=== PATIENT | male | born 1975 | race Caucasian/White ===

== ENCOUNTER 2016-06-11 20:26 | Inpatient (IN) | payer BC ==
[~2016-06-11] VITALS: Ht 185.4 cm; Wt 122.0 kg
[2016-06-11 20:36] VITALS: BP 144/93
--- NOTE | 2016-06-11 20:41 | NUR ---
BIBA TO ER BED 5
--- NOTE | 2016-06-11 20:42 | NUR ---
BIBA C/O HEADACHE AND REDNESS , PAIN AND SWELLING ON HIS LEFT EYE , S/P SPIDER BITE 4 DAYS AGO.SEEN IN AN URGENT WITH PRESCRIPTION OF ANTIBIOTIC AND IBUPROFEN
[2016-06-11] MEDS ORDERED: ACETAMINOPHEN EXTRA STRENGTH 500 MG TAB ONE (20:48)
[2016-06-11] MEDS ORDERED: fentaNYL 0.05 MG/ML VIAL IM ONE (21:15)
--- NOTE | 2016-06-11 21:27 | NUR ---
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
[2016-06-11] MEDS ORDERED: VANCOMYCIN 1,000 MG in DEXTROSE 5% 250 ML IV ONE (22:20)
[2016-06-11] MEDS ORDERED: NACL 0.9% 1,000 ML IV ONE (22:20)
[2016-06-11] MEDS ORDERED: VANCOMYCIN 1,000 MG VIAL ONE (22:30)
[2016-06-11] MEDS ORDERED: ATROPINE 0.4 MG/ML VIAL IVP ONE (22:40)
[2016-06-11] MEDS ORDERED: MIDAZOLAM 2 MG/2 ML VIAL IVP ONE (22:40)
[2016-06-11] MEDS ORDERED: KETAMINE 500 MG/5 ML VIAL IVP ONE (22:40)
[2016-06-11 22:49] LABS: HEMATOCRIT 46.1 % (36-52); HEMOGLOBIN 15.4 g/dL (12.0-18.0); MEAN CORPUSCULAR HEMOGLOBIN 32 pg (27-31); MEAN CORPUSCULAR HGB CONC 33 g/dL (33-37); MEAN CORPUSCULAR VOLUME 95 fL (80-94); PLATELET COUNT (AUTO) 238 K/uL (140-450); RED BLOOD CELL COUNT(AUTO) 4.86 MIL/uL (4.20-6.10); RED CELL DISTRIBUTION WIDTH 13.1 % (11.6-13.7)
[2016-06-11 23:08] LABS: BAND % (MANUAL) 15 % (0-8); EOSINOPHILS % (MANUAL) 4 % (0-4); LYMPHOCYTES % (MANUAL) 18 % (20-46); MONOCYTES % (MANUAL) 3 % (5-12); NEUTROPHILS % (MANUAL) 60 (43-65); WHITE BLOOD COUNT (AUTO) 16.1 K/uL (4.8-10.8)
[2016-06-11] MEDS ORDERED: ATROPINE 1 MG/10 ML SYR IVP ONE (23:09)
[2016-06-11 23:26] LABS: ANION GAP 13.6 (8-16); CALCIUM 8.7 mg/dL (8.5-10.1); CARBON DIOXIDE 26.3 mmol/L (21-32); POTASSIUM 3.9 mmol/L (3.5-5.1)
--- NOTE | 2016-06-11 23:26 | NUR ---
KETAMINE ADMINISTERED AT BEDSIDE WITH DR LINDSAY ;VS WNL; BREATHING UNLABORED
[2016-06-11 23:27] LABS: TOTAL BILIRUBIN 0.4 mg/dL (0.0-1.0); TOTAL PROTEIN, SERUM 7.2 g/dL (6.4-8.2)
[2016-06-11 23:28] LABS: ALBUMIN 3.3 g/dL (3.4-5.0)
--- NOTE | 2016-06-11 23:28 | NUR ---
VERSED ADMINISTERED AT BEDSIDE WITH DR LINDSAY ;VS WNL; BREATHING UNLABORED
[2016-06-11 23:31] LABS: PARTIAL THROMBOPLASTIN TIME 26.5 secs (22-35.6); PROTHROMBIN TIME 9.2 secs (10.8-13.4)
--- NOTE | 2016-06-11 23:35 | NUR ---
PT AWAKE, CALM ;VS WNL; BREATHING UNLABORED
[2016-06-11] MEDS ORDERED: ONDANSETRON 4 MG/2 ML VIAL IVP PRN (23:50)
[2016-06-11] MEDS ORDERED: LORazepam 2 MG/ML VIAL IVP PRN (23:50)
[2016-06-11] MEDS ORDERED: ACETAMINOPHEN 325 MG TAB PO PRN (23:50)
[2016-06-11] MEDS ORDERED: VANCOMYCIN PER PHARMACY MC PRN (23:50)
--- NOTE | 2016-06-12 00:26 | NUR ---
Pt report given to ISIDRO GRIFFITH . Transfer of care at this time.
--- NOTE | 2016-06-12 00:26 | NUR ---
Patient will be admitted to care of DR JIMENEZ . Admited to MS 106B. Will go to room 106B. Belongings list completed. Report to ISIDRO GRIFFITH .
[2016-06-12 00:45] VITALS: BP 139/97
--- NOTE | 2016-06-12 00:45 | NUR ---
ADMITTED 41 YEAR OLD MALE FROM ER. PT ARRIVED TO UNIT VIA WHEEL CHAIR. INITIAL ASSESSMENT COMPLETED. PT AA0X4. PT STABLE. VS STABLE. PT HAS A DRESSING ON LEFT EYE S/P I & D DONE IN ER. PT HAS IV ON RIGHT HAND G 22; ASYMPTOMATIC, PATENT AND INTACT SL. ORIENTED PT TO ROOM AND SURROUNDINGS AND USE OF CALL LIGHT. EXPLAINED PLAN OF CARE TO PT AND HE VERBALIZES UNDERSTANDING. CALL LIGHT WITHIN REACH. Addendum: 06/12/16 at 0330 by Shannan Rodriguez RN PT HAS A SMALL SCAB ON HIS LOWER BACK.
--- NOTE | 2016-06-12 01:00 | NUR ---
PT REFUSED TO WEAR SCDS. EXPLAINED TO PT THE IMPORTANCE OF WEARING THEM BUT HE STILL REFUSES. WILL CONTINUE TO MONITOR PT.
--- NOTE | 2016-06-12 01:37 | NUR ---
PT COMPLAINING OF EYE PAIN 06/18. VS STABLE, WILL MEDICATE ORDERED.
[2016-06-12] MEDS: HYDROcodone/APAP 5/325 MG 1 TAB TAB PO PRN ×2 (01:39→06:47)
--- NOTE | 2016-06-12 02:53 | NUR ---
PT SLEEPING AT THIS TIME. NO SIGNS OF DISTRESS/DISCOMFORT NOTED. WILL CONTINUE TO MONITOR PT.
--- NOTE | 2016-06-12 04:59 | NUR ---
PT SLEEPING AT THIS TIME. NO SIGNS OF DISTRESS NOTED. CALL LIGHT WITHIN REACH.
--- NOTE | 2016-06-12 06:45 | NUR ---
PT COMPLAINING OF LEFT EYE PAIN 5/10. VS STABLE, WILL MEDICATE ORDERED.
[2016-06-12 06:52] LABS: BASOPHILS # (AUTO) 0.1 K/uL (0.00-0.22); BASOPHILS % (AUTO) 0.9 % (0.0-2.0); EOSINOPHILS # (AUTO) 0.4 K/uL (0-0.4); EOSINOPHILS % (AUTO) 2.8 % (0.0-4.0); HEMATOCRIT 46.7 % (36-52); HEMOGLOBIN 15.8 g/dL (12.0-18.0); LYMPHOCYTES # (AUTO) 2.4 K/uL (2.0-11.5); LYMPHOCYTES % (AUTO) 16.1 % (20.5-51.1); MEAN CORPUSCULAR HEMOGLOBIN 32 pg (27-31); MEAN CORPUSCULAR HGB CONC 34 g/dL (33-37); MEAN CORPUSCULAR VOLUME 96 fL (80-94); MONOCYTES # (AUTO) 1.2 K/uL (0.8-1.0); MONOCYTES % (AUTO) 7.9 % (1.7-9.3); NEUTROPHILS # (AUTO) 10.9 K/uL (1.8-7.7); NEUTROPHILS % (AUTO) 72.3 % (42.2-75.2); PLATELET COUNT (AUTO) 245 K/uL (140-450); RED BLOOD CELL COUNT(AUTO) 4.88 MIL/uL (4.20-6.10); RED CELL DISTRIBUTION WIDTH 13.1 % (11.6-13.7)
[2016-06-12 07:06] LABS: CALCIUM 8.5 mg/dL (8.5-10.1); CARBON DIOXIDE 26.9 mmol/L (21-32); CREATININE 0.9 mg/dL (0.6-1.3); POTASSIUM 3.9 mmol/L (3.5-5.1)
--- NOTE | 2016-06-12 07:24 | NUR ---
ENDORSED PLAN OF CARE TO DAY SHIFT NURSE. PT IN STABLE CONDITION.
[2016-06-12 08:00] VITALS: BP 130/89
--- NOTE | 2016-06-12 08:00 | NUR ---
RECEIVED REPORT FROM ISIDRO GRIFFITH FOR CONTINUITY OF CARE. PATIENT AWAKE A/OX4 NO S/S OF RESP DISTRESS NOTED .PATIENT JUST RECEIVED PAIN MEDS WILL REASSESS PAIN MEDS. LEFT UPPER AND LOWER LIDS SWOLLEN S/P I&D COVERED WITH DRESSING NO DRAINAGE NOTED. IV SITE RT HAND GAUGE 20 INTACT AND PATENT. PLAN OF CARE DISCUSSED WITH THE PATIENT VITALS STABLE WILL CONTINUE TO MONITOR.
[2016-06-12] MEDS ORDERED: VANCOMYCIN 1,250 MG in DEXTROSE 5% 250 ML IV SCH (09:00)
--- NOTE | 2016-06-12 09:00 | NUR ---
DUE MED VANCOMYCIN IVPB GIVEN. LEFT EYE SWOLLEN , HAD DRAINAGE REINFORCE DRESSING NOTIFIED DR BARBARA RODRIGUEZ NEW ORDER SURGICAL CONSULT WITH DR REYES .
--- NOTE | 2016-06-12 09:10 | NUR ---
SPOKE WITH DR REYES ,HE SUGGESTED SLIP OPERATOR, PATIENT'S CASE IS NOT HIS PRACTICE. SPOKE WITH DR CHAND STATED NOT TAKING CONSULT AT THIS TIME. NOTIFIED DR JIMENEZ NEW ORDER CONSULT DR SALVADOR ESPINOZA.
[2016-06-12] MEDS ORDERED: MORPHINE SULFATE 2 MG/ML SYR IVP PRN (10:00)
--- NOTE | 2016-06-12 10:11 | NUR ---
PATIENT HAS BEEN SCREENED AND CATEGORIZED HIGH NUTRITION RISK. PATIENT WILL BE SEEN WITHIN 1-2 DAYS OF ADMISSION. 06/12/16-06/13/[address]
--- NOTE | 2016-06-12 10:30 | NUR ---
NOTIFIED DR FRANCO THE CONSULT WILL SEE PATIENT SOON HE IS DONE THE SURGERY.
--- NOTE | 2016-06-12 13:16 | NUR ---
DR BARBARA Taylor VISITED PATIENT NEW ORDER TRANSFER TO HIGHER LEVEL OF CARE.
--- NOTE | 2016-06-12 14:03 | NUR ---
FAXED INITIAL REVIEW TO [facility] [phone] PHONE ZEINA [phone] CALLED ZEINA ABOUT TRANSFER TO HIGHER LEVEL OF CARE. SHE SAID FOR ME TO GET A FACILITY THAT WILL TAKE HER. CALLED [facility] AND SPOKE WITH LUBNA. AT PRESENT NO BEDS, BUT SHE SAID TO FAX FACE SHEET.
--- NOTE | 2016-06-12 14:37 | NUR ---
06/12/16 RD INITIAL ASSESSMENT COMPLETED PLEASE REFER TO NUTRITION ASSESSMENT UNDER CARE ACTIVITY FOR ESTIMATED NUTRITIONAL NEEDS. 1. CONTINUE REGULAR DIET 2. RD TO FOLLOW-UP 3-5 DAYS; MODERATE RISK LANI BA RD
--- NOTE | 2016-06-12 15:15 | NUR ---
CALLED [facility] AND SPOKE WITH JONG FAXED FACE SHEET TO THE. WAS TOLD TO CALL ER AND TO FIND OUT THE NAME OF THE HOSPITALIST. I CALLED ER AND WAS TOLD THE HOSPITALIST WAS DR. GUTIERREZ PAGER [phone].. I LEFT A MESSAGE FOR HIM TO CALL ME TO SEE IF HE WILL ACCEPT THIS PATIENT. NO CALL BACK I CALLED DR.A JIMENEZ AND INFORMED HIME THAT THIS PHYSICIAN MAY CALL HIM. I ALSO CALLED [facility] AND SPOKE WITH LUBNA. SHE SAID THEY CAN ACCEPT THE PATIENT, THEY JUST NEED THE ACCEPTING PHYSICIAN TO CALL [facility] CONTROL. THE PATIENT CAN GO TO ROOM 580B. I INFORMED DR Pino JIMENEZ AND HE SAID HE WOULD GET HIS FATHER TO CALL [facility]. LEFT A MESSAGE WITH ZEINA FROM [facility].
--- NOTE | 2016-06-12 16:00 | NUR ---
D/C PATIENT TO [facility] VIA AMBULANCE , VITALS STABLE D/C INSTRUCTION GIVEN TO THE PATIENT. VERBALIZED UNDERSTANDING.
--- NOTE | 2016-06-12 16:01 | NUR ---
SPOKE WITH LUBNA AT [facility]. THEY PATIENT HAS BEEN ACCEPTED UNDER DR. Alida JIMENEZ. I CALLED [facility] AND INFORMED ZEINA. SHE ASKED IF SOMEONE CALLED [facility] TO OPEN A CASE. SHE ALSO SAID FOR TRANSPORT, NO AUTH NEEDED. I CALLED LUBNA A [facility] AND TOLD HER ABOUT SOMEONE CALLING [facility] AT [facility] AND GAVE HER THE PHONE NUMBER FOR INTAKE, . I CALLED [facility] AND PICKUP WILL BE IN ABOUT 30 MINUTES. THE PATIENT TO GO TO ROOM 580B. PHONE FOR REPORT IS [phone]. LLOYD GRIFFITHSEASONAL RETAIL MERCHANDISER NURSE INFORMED . I CALLED [facility] AND SPOKE WITH JONG AND INFORMED HER THAT THE PATIENT WAS GOING TO ANOTHER FACILITY.
[2016-06-12 16:37] VITALS: BP 125/69
== END 2016-06-12 16:00 | disposition short-term general hospital (02) | DRG 854 ==
LOC: MED 20:26 → MTU 23:56
PROVIDERS: ADMIT Preventive Medicine Preventive Medicine/Occupational Environmental Medicine; ATTEND Preventive Medicine Preventive Medicine/Occupational Environmental Medicine
PROC: 0N9 Head and Facial Bones, Drainage (ICD-10-PCS; principal; 2016-06-11)
DX: A41.9 Sepsis, unspecified organism (principal); L03.213 Periorbital cellulitis; E88.09 Other disorders of plasma-protein metabolism, not elsewhere classified; R73.9 Hyperglycemia, unspecified
CPT/HCPCS: 36415; 70480; 80048; 80053; 83605; 85025; 85610; 85651; 85730; 86140; 87040; 87081; 96365; 96366; 96372; 99285; J0461; J2250; J2270; J3010; J3370; J7030; J7060